=== PATIENT | male | born 1985 | race Caucasian/White ===

== ENCOUNTER 2016-12-22 21:39 | Emergency (ER) | payer MEDICARE, OTHER ==
--- NOTE | 2016-12-22 22:01 | ERPHSYRPT ---
- History of Present Illness Time Seen by Provider: 12/22/16 21:56 Source: patient Exam Limitations: no limitations Patient Subjective Stated Complaint: pt states he has an infected tooth Triage Nursing Assessment: pt alert and oreinted, answers questions approp. pt ambulatory with steady gait noted. Physician History: pt has had increased pain an d now swelling of his jaw these past few days no vomiting; swallowing OK, tender left lower molars reproduce pain exactly; swallowing OK in ER now and digastric tringle is supple floor of mouth supple left jaw swollen; no hx trauma; Timing/Duration: gradual onset, persistent, days Severity: moderate ENT Location: dental Prearrival Treatment: over the counter meds Modifying Factors: Improves With: nothing Associated Symptoms: facial pain/swelling, jaw pain, tooth pain, No drooling, No nasal congestion/drainage, No epistaxis, No neck pain, No poor fluid intake, No sore throat, No difficulty swallowing, No voice change Allergies/Adverse Reactions: No Known Drug Allergies Allergy (Verified 12/22/16 21:54) Home Medications: Baclofen 10 mg [Lioresal 10 mg] 10 mg PO TID 12/22/16 [History] Buspirone HCl 15 mg PO BID 12/22/16 [History] Lurasidone HCl [Latuda] 20 mg PO HS 12/22/16 [History] Propranolol HCl 10 mg PO BID 12/22/16 [History] Hx Tetanus, Diphtheria Vaccination/Date Given: No Hx Influenza Vaccination/Date Given: No Hx Pneumococcal Vaccination/Date Given: No Immunizations Up to Date: No - Review of Systems Constitutional: No Fever, No Chills Eyes: No Symptoms Ears, Nose, & Throat: Other (dental pain and face swelling) Respiratory: No Cough, No Dyspnea Cardiac: No Chest Pain, No Edema, No Syncope Abdominal/Gastrointestinal: No Abdominal Pain, No Nausea, No Vomiting, No Diarrhea Genitourinary Symptoms: No Dysuria Musculoskeletal: No Back Pain, No Neck Pain Skin: No Rash Neurological: No Dizziness, No Focal Weakness, No Sensory Changes Psychological: No Symptoms Endocrine: No Symptoms All Other Systems: Reviewed and Negative - Past Medical History Pertinent Past Medical History: Yes Neurological History: No Pertinent History ENT History: Other Cardiac History: No Pertinent History Respiratory History: No Pertinent History Endocrine Medical History: No Pertinent History Musculoskeletal History: No Pertinent History GI Medical History: No Pertinent History History: No Pertinent History Psycho-Social History: Anxiety, Other Male Reproductive Disorders: No Pertinent History Other Medical History: ptsd - Past Surgical History Past Surgical History: No Neuro Surgical History: No Pertinent History Cardiac: No Pertinent History Respiratory: No Pertinent History Gastrointestinal: No Pertinent History Genitourinary: No Pertinent History Musculoskeletal: No Pertinent History Male Surgical History: No Pertinent History - Social History Smoking Status: Current every day smoker How long have you smoked: 12 yrs Exposure to second hand smoke: Yes Drug Use: none Patient Lives Alone: No - Nursing Vital Signs Nursing Vital Signs: Initial Vital Signs Temperature 98.3 F Temperature Source Oral Pulse Rate 102 Respiratory Rate 16 Blood Pressure [Right Arm] 143/100 Pain Intensity 4 - Physical Exam General Appearance: no apparent distress, alert Eye Exam: bilateral eye: normal inspection, PERRL, EOMI Ear Exam: bilateral ear: auricle normal, canal normal, TM normal Nasal Exam: normal inspection Throat Exam: pharynx normal, dental tenderness, mandibular swelling, moist mucus membranes, No excessive drooling, No pharynx swelling, No pharynx tenderness, No tongue swollen, No tonsillar exudate, No trismus, No uvula swelling, No voice changes Neck Exam: normal inspection, non-tender, supple, full range of motion, trachea midline Cardiovascular/Respiratory Exam: chest non-tender, normal breath sounds, regular rate/rhythm, heart sounds normal Abdominal Exam: non-tender, soft Neurologic Exam: alert, oriented x 3, cooperative, manager database administration II-XII nml as tested, normal mood/affect, nml cerebellar function, nml station & gait, sensation nml, No motor deficits Skin Exam: normal color, warm, dry SpO2 Interpretation: normal SpO2: 97 Oxygen Delivery: Room Air - Course Nursing assessment & vital signs reviewed: Yes Ordered Tests: Active Orders 24 hr Category Date Time Status IV Insertion STAT Care 12/22/16 22:03 Active FACIAL BONES WO CONTRAST [CT] Stat Exams 12/22/16 22:04 Taken CBC W DIFF Stat Lab 12/22/16 22:23 Completed Medication Summary Discontinued Medications Generic Name Dose Route Start Last Admin Trade Name Freq PRN Reason Stop Dose Admin Diphenhydramine HCl 25 mg 12/22/16 22:03 12/22/16 22:29 Benadryl 50 Mg/Ml IV 12/22/16 22:04 25 mg STAT ONE Administration Diphenhydramine HCl Confirm 12/22/16 22:19 Benadryl 50 Mg/Ml Administered 12/22/16 22:20 Dose 50 mg .ROUTE .STK-MED ONE Hydromorphone HCl 1 mg 12/22/16 23:45 Hydromorphone 1 Mg/Ml Ampule IV 12/22/16 23:46 STAT ONE Sodium Chloride 1,000 mls @ 999 mls/hr 12/22/16 22:03 12/22/16 22:22 Sodium Chloride 0.9% 1000 Ml IV 12/22/16 23:03 999 mls/hr .Q1H1M STA Administration Clindamycin HCl/Dextrose 900 mg in 50 mls @ 100 mls/hr 12/22/16 22:06 23:01 Clindamycin-D5w 900 Mg/50 Ml IV 12/22/16 22:35 100 mls/hr STAT STA Administration Ceftriaxone Sodium/Dextrose 1 g in 50 mls @ 100 mls/hr 12/22/16 22:06 22:32 Rocephin 1 Gm-D5w 50 Ml Bag IV 12/22/16 22:35 100 mls/hr STAT STA Administration Clindamycin HCl/Dextrose Confirm 12/22/16 22:19 Clindamycin-D5w 900 Mg/50 Ml Administered 12/22/16 22:20 Dose 900 mg in 50 mls @ ud IV .STK-MED ONE Ceftriaxone Sodium/Dextrose Confirm 12/22/16 22:19 Rocephin 1 Gm-D5w 50 Ml Bag Administered 12/22/16 22:20 Dose 1 g in 50 mls @ ud IV .STK-MED ONE Sodium Chloride Confirm 12/22/16 22:19 Sodium Chloride 0.9% 1000 Ml Administered 12/22/16 22:20 Dose 1,000 mls @ ud .ROUTE .STK-MED ONE Morphine Sulfate 4 mg 12/22/16 22:03 12/22/16 22:26 Morphine Sulfate 4 Mg Inj IV 12/22/16 22:04 4 mg STAT ONE Administration Morphine Sulfate Confirm 12/22/16 22:19 Morphine Sulfate 4 Mg Inj Administered 12/22/16 22:20 Dose 4 mg .ROUTE .STK-MED ONE Ondansetron HCl 4 mg 12/22/16 22:03 12/22/16 22:24 Zofran 4 Mg/2 Ml Vial IV 12/22/16 22:04 4 mg STAT ONE Administration Ondansetron HCl Confirm 12/22/16 22:19 Zofran 4 Mg/2 Ml Vial Administered 12/22/16 22:20 Dose 4 mg .ROUTE .STK-MED ONE Lab/Rad Data: Laboratory Result Diagrams 12/22/16 22:23 Laboratory Results 12/22/16 Range/Units 22:23 WBC 9.7 (4.0-10.5) K/mm3 RBC 5.16 (4.1-5.6) M/mm3 Hgb 15.9 (12.5-18.0) gm/dl Hct 43.9 (42-50) % MCV 85.1 (78-100) fl MCH 30.8 (26-32) pg MCHC 36.2 H (32-36) g/dl RDW 13.1 (11.5-14.0) % Plt Count 228 (150-450) K/mm3 MPV 10.0 H (6-9.5) fl Gran % 65.7 (36.0-66.0) % Lymphocytes % 23.8 L (24.0-44.0) % Monocytes % 7.6 (0.0-12.0) % Eosinophils % 2.7 (0.00-5.0) % Basophils % 0.2 (0.0-0.4) % Basophils # 0.02 (0-0.4) - Progress Progress: improved, re-examined Progress Note: 12/22/16 23:46 pt still swallowing OK in ER and feeling better after meds; advised pt that he is at risk for increased swelling which could progress and he understands but prefers DC to f/u dentist oral surgery Saturday and will return meantime if any concerns increased swelling or trouble swallowing or breathing; Counseled pt/family regarding: lab results, diagnosis, need for follow-up, rad results - Departure Time of Disposition: 23:48 Departure Disposition: Home Clinical Impression: Abscess, dental Condition: Good Critical Care Time: No Instructions: Tooth Abscess, Tooth Decay
[2016-12-22] MEDS ORDERED: Zofran 4 MG/2 ML VIAL IV ONE (22:03)
[2016-12-22] MEDS ORDERED: BENADRYL 50 MG/ML IV ONE (22:03)
[2016-12-22] MEDS ORDERED: MORPHINE SULFATE 4 MG INJ IV ONE (22:03)
[2016-12-22] MEDS ORDERED: Sodium Chloride 0.9% 1000 ML 1,000 ML IV STA (22:03)
[2016-12-22] MEDS ORDERED: ROCEPHIN 1 Gm-D5w 50 ml Bag** 1 G/50 ML IVPB IV STA (22:06)
[2016-12-22] MEDS ORDERED: CLINDAMYCIN-D5W 900 MG/50 ML*** 900 MG/50 ML BAG IV STA (22:06)
[2016-12-22] MEDS ORDERED: ROCEPHIN 1 Gm-D5w 50 ml Bag** 1 G/50 ML IVPB IV ONE (22:19)
[2016-12-22] MEDS ORDERED: Zofran 4 MG/2 ML VIAL ONE (22:19)
[2016-12-22] MEDS ORDERED: BENADRYL 50 MG/ML ONE (22:19)
[2016-12-22] MEDS ORDERED: MORPHINE SULFATE 4 MG INJ ONE (22:19)
[2016-12-22] MEDS ORDERED: CLINDAMYCIN-D5W 900 MG/50 ML*** 900 MG/50 ML BAG IV ONE (22:19)
[2016-12-22] MEDS ORDERED: Sodium Chloride 0.9% 1000 ML 1,000 ML ONE (22:19)
[2016-12-22 22:26] LABS: BASOPHIL % 0.2 % (0.0-0.4); Eosinophil % 2.7 % (0.00-5.0); Granulocytes % 65.7 % (36.0-66.0); Lymphocytes % 23.8 % (24.0-44.0); Mean Cell Volume 85.1 fl (78-100); Mean Corpuscular Hemoglobin 30.8 pg (26-32); Monocytes % 7.6 % (0.0-12.0); Platelet Count 228 K/mm3 (150-450); Red Blood Count 5.16 M/mm3 (4.1-5.6); Red Cell Distribution Width 13.1 % (11.5-14.0); White Blood Count 9.7 K/mm3 (4.0-10.5)
[2016-12-22 23:45] VITALS: O2SAT 97
[2016-12-22] MEDS ORDERED: Hydromorphone 1 mg/ml Ampule IV ONE (23:45)
[2016-12-22] MEDS ORDERED: Hydromorphone 1 mg/ml Ampule ONE (23:57)
[2016-12-23 00:05] VITALS: BP 141/99; PULSE 112
--- NOTE | 2016-12-23 10:01 | XRAY ---
Indication: Left lower jaw pain and swelling. Possible dental abscess. Multiple contiguous axial images obtained through the facial bones without contrast. Sagittal and coronal reformatted images obtained. Comparison: None There are multiple bilateral dental amalgams producing beam artifact limiting these levels. Multiple bilateral dental caries, greatest in the left lower teeth. There is moderate swelling of the left mandible. No underlying fluid/air collection. No acute fracture or suspicious bony lesions. Visualized cervical spine is intact. Scattered centimeter/subcentimeter cervical nodes bilaterally none pathologically enlarged. Enlarged palatine tonsils narrows the oropharynx. Infraglottic airway is widely patent. There is mild mucosal thickening of both ethmoid and right frontal sinuses without fluid leveling. Orbits and base the brain are unremarkable. Impression: 1. Multiple bilateral dental caries. Left mandible soft tissue swelling presumed inflammatory/infectious. No abnormal fluid/air collection. 2. Enlarged palatine tonsils. 3. Incidental paranasal sinus disease. Comment: Preliminary interpretation was made by [facility]. No critical discrepancy. CTDI 59.47
== END 2016-12-23 00:17 | disposition home or self-care (01) ==
LOC: ED 21:39
DX: K04.7 Periapical abscess without sinus (principal)
CPT/HCPCS: 36000; 36415; 70486; 85025; 96360; 96365; 96367; 96374; 96375; 99284; J0696; J1170; J1200; J2270; J2405

== ENCOUNTER 2022-03-20 14:02 | Emergency (ER) | payer MEDICARE, OTHER ==
[2022-03-20] MEDS ORDERED: MORPHINE SULFATE 10 MG/ML IM ONE (14:22)
--- NOTE | 2022-03-20 14:22 | ERPHSYRPT ---
- History of Present Illness Time Seen by Provider: 03/20/22 14:15 Source: patient Exam Limitations: no limitations Patient Subjective Stated Complaint: PT states "I stumbled and fell through a glass door and cut my right arm and hand." Triage Nursing Assessment: PT presented alert and oriented X 3, skin pwd. Pt ambulate with an upright steady gait, able to speak in clear full sentences pt has right arm bandaged. Bandaging is removed and a laceration noted to right forearm fatty tissue showing, small laceration noted to top of hand. Physician History: Patient 37-year-old male presents to our emergency department via EMS for evaluation and treatment of lacerations to right upper extremity. Patient states he tripped and fell through a glass door. Patient has a deep laceration to the volar aspect of the right forearm. He also has a more superficial laceration to the dorsal aspect of the right hand. Extremities neurovascular intact distally. There are other several superficial lacerations scattered throughout the right upper extremity. No other injuries reported. No BHT or LOC. No neck pain. Cervical spine cleared clinically. Patient voices no other complaints concerns time. Tetanus up-to-date Portions of this note were created with voice recognition technology. There may be grammatical, spelling, punctuation or sound alike errors Timing/Duration: today Severity: moderate Associated Symptoms: denies symptoms Allergies/Adverse Reactions: No Known Drug Allergies Allergy (Verified 12/22/16 21:54) Home Medications: Baclofen 10 mg [Lioresal 10 mg] 10 mg PO TID 12/22/16 [History] Buspirone HCl 15 mg PO BID 12/22/16 [History] Lurasidone HCl [Latuda] 20 mg PO HS 12/22/16 [History] Propranolol HCl 10 mg PO BID 12/22/16 [History] Hx Tetanus, Diphtheria Vaccination/Date Given: Yes Hx Influenza Vaccination/Date Given: No Hx Pneumococcal Vaccination/Date Given: No Immunizations Up to Date: Yes Travel Risk - International Travel Have you traveled outside of the country in past 3 weeks: No - Coronavirus Screening Are you exhibiting any of the following symptoms?: No Close contact with a COVID-19 positive Pt in past 14-21 Days: No - Vaccine Status Have you recieved a Covid-19 vaccination: No - Review of Systems Constitutional: No Symptoms, No Fever, No Chills Eyes: No Symptoms Ears, Nose, & Throat: No Symptoms Respiratory: No Symptoms, No Cough, No Dyspnea Cardiac: No Symptoms, No Chest Pain, No Edema, No Syncope Abdominal/Gastrointestinal: No Symptoms, No Abdominal Pain, No Nausea, No Vomiting, No Diarrhea Genitourinary Symptoms: No Symptoms, No Dysuria Musculoskeletal: No Symptoms, No Back Pain, No Neck Pain Skin: No Symptoms, No Rash Neurological: No Symptoms, No Dizziness, No Focal Weakness, No Sensory Changes Psychological: No Symptoms Endocrine: No Symptoms Hematologic/Lymphatic: No Symptoms Immunological/Allergic: No Symptoms All Other Systems: Reviewed and Negative - Past Medical History Pertinent Past Medical History: Yes Neurological History: No Pertinent History ENT History: Other Cardiac History: No Pertinent History Respiratory History: No Pertinent History Endocrine Medical History: No Pertinent History Musculoskeletal History: No Pertinent History GI Medical History: No Pertinent History History: No Pertinent History Psycho-Social History: Anxiety, Other Male Reproductive Disorders: No Pertinent History Other Medical History: ptsd - Past Surgical History Past Surgical History: No Neuro Surgical History: No Pertinent History Cardiac: No Pertinent History Respiratory: No Pertinent History Gastrointestinal: No Pertinent History Genitourinary: No Pertinent History Musculoskeletal: No Pertinent History Male Surgical History: No Pertinent History - Social History Smoking Status: Current every day smoker How long have you smoked: 12 yrs Exposure to second hand smoke: Yes Drug Use: none Patient Lives Alone: No - Nursing Vital Signs Nursing Vital Signs: Initial Vital Signs Temperature 97.6 F 03/20/22 14:03 Pulse Rate 85 03/20/22 14:03 Respiratory Rate 18 03/20/22 14:03 Blood Pressure 151/93 03/20/22 14:03 O2 Sat by Pulse Oximetry 98 03/20/22 14:03 Pain Scale Pain Intensity 0 - Physical Exam General Appearance: no apparent distress, alert Eye Exam: PERRL/EOMI, eyes nml inspection Ears, Nose, Throat Exam: normal ENT inspection, TMs normal, pharynx normal, moist mucous membranes Neck Exam: normal inspection, non-tender, supple, full range of motion Respiratory Exam: normal breath sounds, lungs clear, airway intact, No respiratory distress Cardiovascular Exam: regular rate/rhythm, normal heart sounds, normal peripheral pulses Gastrointestinal/Abdomen Exam: soft, normal bowel sounds, No tenderness, No mass Back Exam: normal inspection, normal range of motion, No CVA tenderness, No vertebral tenderness Extremity Exam: normal inspection, normal range of motion, pelvis stable, other (No bony pain or tenderness. No soft tissue foreign body sensation. No foreign body observed on visual inspection of wounds) Neurologic Exam: alert, oriented x 3, cooperative, normal mood/affect, nml cerebellar function, nml station & gait, sensation nml, No motor deficits Skin Exam: normal color, warm, dry, other (5 x 1.5 deep laceration volar aspect right forearm involving muscle. There is a superficial 3 cm laceration dorsal aspect right hand.), No rash Lymphatic Exam: No adenopathy SpO2 Interpretation: normal SpO2: 98 O2 Delivery: Room Air Procedures - Laceration/Wound Repair Arm Time of Procedure: 16:43 Wound Location: Right (Right volar forearm) Wound Length (cm): 5 Wound's Depth, Shape: into muscle Irrigated: Yes Hibiclens Prep: Yes Anesthesia: 2% Lidocaine Volume Anesthetic (ccs): 3 Wound Repaired With: sutures Suture Size/Type: 4-0 Number of Sutures: 3 Layer Closure?: No Sterile Dressing Applied?: Yes Splint Applied?: Yes Sling Applied?: Yes Progress: Patient neurovascular tact distally post procedure. Patient neurovascular intact distally post splint application. 03/20/22 16:44 - Course Nursing assessment & vital signs reviewed: Yes Ordered Tests: Medication Summary Discontinued Medications Generic Name Dose Route Start Last Admin Trade Name Freq PRN Reason Stop Dose Admin Ceftriaxone Sodium 1,000 mg 03/20/22 14:24 03/20/22 14:27 Ceftriaxone Sodium 1000 Mg Inj Vial IM 03/20/22 14:25 1,000 mg STAT ONE Administration Ceftriaxone Sodium Confirm 03/20/22 14:26 Ceftriaxone Sodium 1000 Mg Inj Vial Administered 03/20/22 14:27 Dose 1,000 mg .ROUTE .STK-MED ONE Lidocaine HCl Confirm 03/20/22 14:29 Lidocaine Hcl 1% 20 Ml Mdv 20 Ml Ml Administered 03/20/22 14:30 Dose 3 ml .ROUTE .STK-MED ONE Lidocaine HCl 5 ml 03/20/22 15:50 03/20/22 16:05 Lidocaine Hcl 2% 20 Ml Mdv IJ 03/20/22 15:51 5 ml STAT ONE Administration Lidocaine HCl Confirm 03/20/22 16:03 Lidocaine Hcl 2% 20 Ml Mdv Administered 03/20/22 16:04 Dose 5 ml .ROUTE .STK-MED ONE Morphine Sulfate 4 mg 03/20/22 14:22 03/20/22 14:27 Morphine Sulfate 10 Mg/Ml Injection IM 03/20/22 14:23 4 mg STAT ONE Administration Morphine Sulfate Confirm 03/20/22 14:25 Morphine Sulfate 10 Mg/Ml Injection Administered 03/20/22 14:26 Dose 10 mg .ROUTE .STK-MED ONE - Progress Progress: improved Progress Note: Dr. Fernandez on page. Dr. Fernandez advised calling on-call hand surgeon from [facility]. 03/20/22 14:30 Case discussed with who advises temporary closure and splinting followed by antibiotics pain control and referral to his office. His office is [facility]. . Patient to maintain n.p.o. status starting midnight. 03/20/22 15:48 We approximated the wound edges of the forearm. Definitive closure will occur tomorrow by orthopedic surgeon. Patient requested Steri-Strips dorsal aspect of right hand. This was applied. The involved extremity neurovascular intact distally post procedure and post with application. Portions of this note were created with voice recognition technology. There may be grammatical, spelling, punctuation or sound alike errors 03/20/22 16:46 Patient discharged home with 4 [place] pills. [id number] ibuprofen as needed for pain 03/20/22 16:52 Counseled pt/family regarding: diagnosis, need for follow-up, rad results - Departure Departure Disposition: Home Clinical Impression: Fall, Forearm laceration Condition: Stable Critical Care Time: No Referrals: [facility]OSPITAL,'[facility] [Primary Care Provider] - Follow up/PCP as directed Additional Instructions: Please follow-up with Dr. Dang. Call [phone] for an appointment. You are to not eat anything at all after midnight as you will have a surgical procedure done tomorrow 03/21/2022 Discharge/Care Plan ANAELIEL JARAMILLO was seen on 03/20/22 in the Emergency Room. The patient was counseled regarding Diagnosis,Lab results, Imaging studies, need for follow up and when to return to the Emergency Room. Prescriptions given: Discharge Note I have spoken with the patient and/or caregivers. I have explained the patient's condition, diagnosis and treatment plan based on the information available to me at this time. I have answered the patient's and/or caregiver's questions and addressed any concerns. The patient and/or caregivers have as good understanding of the patient's diagnosis, condition and treatment plan as can be expected at this point. The vital signs have been stable. The patient's condition is stable and appropriate for discharge from the emergency department. The patient will pursue further outpatient evaluation with the primary care physician or other designated or consulting physician as outlined in the discharge instructions. The patient and/or caregivers are agreeable to this plan of care and follow-up instructions have been explained in detail. The patient and/or caregivers have received these instruction. The patient/and or caregivers are aware that any significant change in condition or worsening of symptoms should prompt an immediate return to this or the closest emergency department or call 911. Prescriptions: Cephalexin Mh 500 mg [Keflex 500 mg] 500 mg PO QID 7 Days #28 cap
[2022-03-20] MEDS ORDERED: Rocephin 1000 MG INJ IM ONE (14:24)
[2022-03-20] MEDS ORDERED: MORPHINE SULFATE 10 MG/ML ONE (14:25)
[2022-03-20] MEDS ORDERED: Rocephin 1000 MG INJ ONE (14:26)
[2022-03-20] MEDS ORDERED: XYLOCAINE 1% HCL 20 ML MDV ONE (14:29)
[2022-03-20] MEDS ORDERED: XYLOCAINE 2% HCL 20 ML MDV IJ ONE (15:50)
[2022-03-20] MEDS ORDERED: XYLOCAINE 2% HCL 20 ML MDV ONE (16:03)
[2022-03-20] MEDS ORDERED: NORCO 5/325 MG PO ONE (16:51)
[2022-03-20] MEDS ORDERED: NORCO 5/325 MG ONE (16:52)
[2022-03-20 17:16] VITALS: BP 139/91; PULSE 73; O2SAT 97
== END 2022-03-20 18:12 | disposition home or self-care (01) ==
LOC: ED 14:02
DX: S51.811A Laceration without foreign body of right forearm, initial encounter (principal); S61.411A Laceration without foreign body of right hand, initial encounter; W01.110A Fall on same level from slipping, tripping and stumbling with subsequent striking against sharp glass, initial encounter; Z72.0 Tobacco use; Z79.899 Other long term (current) drug therapy; Z28.310 Unvaccinated for COVID-19
CPT/HCPCS: 12002; 96372; 99283; J0696; J2270; A9270-GY